=== PATIENT | male | born 1950 | race Caucasian/White ===

== ENCOUNTER → 2017-10-14 | Day surgery (SDC) | payer MEDICARE ==
[~2017-10-14] VITALS: Ht 177.8 cm; Wt 68.0 kg
[~2017-10-14] MED LIST: ALBUAER3 INH; AMPICILLIN/SULBAC 3 GM/NS 100 ML IV SCH; AZEL1SPR2 EACH NARE; CETI10 PO; CHLORHEXIDINE GLUCONATE 2 % 1 PACK (2 CLOTHS) TOPICAL PRN; ENALAPRILAT 1.25 MG/ML VIAL ONE; FAMOTIDINE 20 MG/2 ML VIAL ONE; FLUT50SP EACH NARE; INSULIN HUMAN REGULAR 1,000 UNITS/10 ML VIAL SQ PRN; LABETALOL HCL 100 MG/20 ML VIAL ONE; LACTATED RINGER'S 1000 ML IV PRN; LIDOCAINE 1%/EPINEPHrine 1:100,000 SOLN 30 ML VIAL ONE; MEDR4PAK PO; METOPROLOL TARTRATE 25 MG TAB PO PRN; MIDAZOLAM HCL 2 MG/2 ML VIAL ONE; MORPHINE SULFATE 2 MG/ML INJ ONE; OXYMETAZOLINE HCL 0.05% 15 ML NASAL SPRAY ONE; POVIDONE IODINE 5% (ANTISEPSIS KIT) 4 APPLICATIONS EACH NARE PRN; SODIUM CHLORID 0.9% 500 ML IV PRN; TIZA4CAP3 PO; fentaNYL CITRATE 250 MCG/5 ML AMP ONE
[2017-10-14 10:16] VITALS: PULSE 68
[2017-10-14 12:12] VITALS: BP 169/78; PULSE 56; RESP 16; TEMP 97.7; O2SAT 99
--- NOTE | 2017-10-14 22:29 | MP ---
cc: JAVIER GONZÁLES MD DATE OF SURGERY 10/14/[address] Javier Gonzáles PREOPERATIVE DIAGNOSIS 1. Nasal airway obstruction 2. Nasal septal deviation. 3. Hypertrophy of inferior turbinates. POSTOPERATIVE DIAGNOSIS 1. Nasal airway obstruction 2. Nasal septal deviation. 3. Hypertrophy of inferior turbinates. OPERATION PERFORMED 1. Open repair nasal septal fracture. 2. Bilateral submucosal resection of inferior turbinates INDICATIONS Documented in the history and physical. DESCRIPTION OF OPERATION The patient was taken to OR #2 and placed in supine position. Following induction of general anesthesia and intubation, the nose was packed bilaterally with cotton pledgets saturated in 0.05% Oxymetazoline and the septal mucosa and inferior turbinates were injected with a total of 90 mL of 1% Xylocaine with epinephrine 1:100,000. He was then prepped and draped for surgery. The packing was removed and a hemitransfixion incision was made in the left nasal vestibule. Through this incision, the septal mucosa was elevated bilaterally as far as the junction of the bony and cartilaginous septum. This exposed the quadrangular cartilage. This showed evidence of old septal fracture with numerous comminuted fragments extending into the airways, left side greater than right and obstruction of the airways bilaterally. A cumulative area of 2 x 2 cm was removed preserving 1.5 cm dorsal and caudal cartilaginous struts. When this was completed, the mucosa was elevated from the bony septum and the maxillary crest and these were removed using Castellano Carmona forceps on the bony septum and a 6-mm Crystal chisel on the maxillary crest. The incision was then closed with a running suture of 4-0 chromic and the mucosal layers of septum were approximated to each other with a quilting stitch of 4-0 plain gut. Inferior turbinates were then fractured out medially and stab incisions were opened along their inferior surfaces. Through these incisions, the submucosal soft tissue was reduced using a curette and preserving the conchal bone. The incisions were then closed using a suction Bovie at 35 mccoy. The remnants of the inferior turbinates were then relateralized to the lateral nasal wall. The nose was then packed with 5.5 cm rapid rhino packs. Each was inflated with 510 mL of air and the procedure was terminated. The patient was reversed from anesthesia and taken to recovery in good condition. There were no complications. Blood loss was 40 mL. MD SHARYN Jaime /10:33 AM /10:18 PM
== END | disposition home or self-care (01) ==
LOC: PHSDC 07:41
PROVIDERS: ATTEND Otolaryngology
DX: J34.2 Deviated nasal septum (principal); J34.3 Hypertrophy of nasal turbinates
CPT/HCPCS: 00160; 21336; 30140; J0295; J2250; J2270; J3010; J7120